=== PATIENT | male | born 1955 | race Caucasian/White ===

== ENCOUNTER 2019-02-18 07:54 | Inpatient (IN) | payer OTHER, MEDICAID ==
[2019-02-18] VITALS (10 sets, daily range): BP systolic 120–161; BP diastolic 48–88
[~2019-02-18] VITALS: Ht 172.7 cm; Wt 57.7 kg
[~2019-02-18 07:54] MED LIST: AMLO1CAP PO; CIME800T PO; CLON1TAB12 PO; HYDR-3512 PO
[2019-02-18 09:13] LABS: HEMATOCRIT. 33.2 % (42.0-52.0); HEMOGLOBIN. 11.4 g/dL (14.0-18.0); MEAN CORPUSCULAR HEMOGLOBIN 29.6 pg (28.0-32.0); MEAN CORPUSCULAR VOLUME 86.3 fL (80.0-94.0); MEAN PLATELET VOLUME 8.7 fl (7.4-10.4); RED BLOOD CELL COUNT 3.85 mill/uL (4.7-6.1); RED CELL DISTRIBUTION WIDTH 20.5 % (11.6-14.6)
[2019-02-18 09:20] LABS: CHLORIDE 75 mEq/L (98-107)
[2019-02-18 09:24] LABS: ETHANOL BLOOD < 10 mg/dL
[2019-02-18 09:46] LABS: CLARITY URINE CLOUDY (CLEAR); COLOR URINE YELLOW (YELLOW); KETONES URINE NEGATIVE (NEGATIVE); LEUKOCYTE ESTERASE URINE 1+ (NEGATIVE); NITRITE URINE NEGATIVE (NEGATIVE); OCCULT BLOOD URINE NEGATIVE (NEGATIVE); PROTEIN URINE NEGATIVE (NEGATIVE); SPECIFIC GRAVITY URINE 1.007 (1.005-1.030)
[2019-02-18 09:51] LABS: PLATELET ESTIMATE NORMAL
[2019-02-18 09:52] LABS: PLATELET 103 x1000/uL (130-400)
[2019-02-18] MEDS ORDERED: POTASSIUM CHLORIDE INJ 40 MEQ in DEXT 5% WATER 500 ML IV ONE (10:00)
[2019-02-18 10:17] LABS: METHADONE URINE SCREEN NEGATIVE (NEGATIVE); OPIATES URINE SCREEN PRESUMTIVE POSITIVE (NEGATIVE); PHENCYCLIDINE URINE SCREEN NEGATIVE (NEGATIVE)
[2019-02-18 10:18] LABS: *AMPHETAMINES SCREEN URINE NEGATIVE (NEGATIVE); *BARBITURATES SCREEN URINE NEGATIVE (NEGATIVE); CANNABINOID URINE SCREEN NEGATIVE (NEGATIVE)
[2019-02-18 10:20] LABS: *COCAINE SCREEN URINE NEGATIVE (NEGATIVE)
[2019-02-18 10:22] LABS: *BENZODIAZEPINES SCREEN URINE NEGATIVE (NEGATIVE)
[2019-02-18] MEDS ORDERED: CLONIDINE 0.1MG TABLET PO PRN (11:15)
[2019-02-18] MEDS ORDERED: DOCUSATE SODIUM 100MG CAPSULE PO PRN (11:15)
[2019-02-18] MEDS ORDERED: IPRATROPIUM/ALBUTEROL 0.5-3(2.5)MG/3ML NEB INH PRN (11:15)
[2019-02-18] MEDS ORDERED: ACETAMINOPHEN 650MG SUPP PR PRN (11:15)
[2019-02-18] MEDS ORDERED: SODIUM CHLORIDE 0.9% 500 ML IV NR (11:15)
[2019-02-18] MEDS ORDERED: GUAIFENESIN 200MG/10ML SUGAR FREE UDC PO PRN (11:15)
[2019-02-18] MEDS ORDERED: DIPHENHYDRAMINE 50MG/ML VIAL IV PRN (11:15)
[2019-02-18] MEDS ORDERED: MAGNESIUM/ALUMINUM HYDROXIDE/SIMETHICONE 30ML UDC PO PRN (11:15)
[2019-02-18] MEDS ORDERED: LORAZEPAM 0.5MG TABLET PO PRN (11:15)
[2019-02-18] MEDS ORDERED: ONDANSETRON HCL 4MG/2ML INJ IV PRN (11:15)
[2019-02-18] MEDS ORDERED: VANCOMYCIN 1 G PREMIX 200 ML IV ONE (12:00)
[2019-02-18] MEDS ORDERED: SODIUM CHLORIDE 3% 500 ML IV NR (12:00)
[2019-02-18] MEDS ORDERED: PIPERACILLIN/TAZ 3.375G PREMIX 50 ML IV ONE (12:00)
[2019-02-18] MEDS ORDERED: SODIUM CHLORIDE 0.9% 1,000 ML IV ONE (12:00)
[2019-02-18 12:36] LABS: BG BASE EXCESS 0.9 mmol/L (-2.0-2.0); BG CARBOXYHEMOGLOBIN 0.6 % (0.5-1.5); BG DEOXYHEMOGLOBIN 1.6 % (0.0-5.0); BG FRACTION INSPIRED OXYGEN 21; BG HCO3 ACT 23.4 mmol/L (22.0-26.0); BG METHEMOGLOBIN 0.3 % (0.0-1.5); BG OXYGEN SATURATION 98.4 % (92.0-98.5); BG OXYHEMOGLOBIN 97.5 % (94.0-97.0); BG PCO2 29.8 mmHg (35.0-45.0); BG PH 7.512 (7.350-7.450); BG PO2 107.4 mmHg (75.0-100.0); BG SAMPLE SITE RIGHT BRACHIAL; BG TOTAL HEMOGLOBIN 10.3 g/dL (12.0-18.0); BG VENT MODE ROOM AIR
[2019-02-18] MEDS ORDERED: LACTULOSE 20G/30ML UDC PO SCH (13:45)
[2019-02-18] MEDS ORDERED: MAGNESIUM 2 G PREMIX 50 ML IV ONE (13:45)
[2019-02-18] MEDS ORDERED: LIDOCAINE HCL 1% 20ML VIAL (Pyxis) INJ ONE (13:52)
[2019-02-18] MEDS ORDERED: THIAMINE HCL 100 MG in SODIUM CHLORIDE 0.9% 49 ML IV ONE (14:30)
[2019-02-18 14:38] LABS: HEPATITIS B SURFACE ANTIGEN NEGATIVE
[2019-02-18] MEDS ORDERED: LORAZEPAM 2MG/ML CPJ IV PRN (14:45)
[2019-02-18 15:08] LABS: HEPATITIS A AB IGM NEGATIVE (NEGATIVE)
[2019-02-18] MEDS ORDERED: FUROSEMIDE 40MG/4ML VIAL IVP ONE (16:00)
[2019-02-18] MEDS: FOLIC ACID 1MG TABLET PO SCH (17:20)
[2019-02-18] MEDS: MULTIVITAMINS,THER W-MINERALS TABLET PO SCH (17:20)
[2019-02-18 17:34] LABS: CHLORIDE 81 mEq/L (98-107)
[2019-02-18 17:42] LABS: CREATINE KINASE 78 IU/L (39-308)
[2019-02-18 17:44] LABS: CREATINE KINASE MB FRACTION 3.5 ng/mL (0.5-3.6)
[2019-02-18] MEDS ORDERED: POTASSIUM CHLORIDE INJ 40 MEQ in DEXT 5% WATER 250 ML IV SCH ×2 (18:00→22:00)
[2019-02-18] MEDS: HYDROCODONE/ACETAMINOPHEN 5/325MG TABLET PO PRN (18:31)
[2019-02-18 18:58] LABS: PHOSPHORUS 0.6 mg/dL (2.5-4.9)
[2019-02-18] MEDS: PIPERACILLIN/TAZOBACTAM 3.375 G in DEXT 5% WATER 100 ML IV SCH (20:29)
[2019-02-18] MEDS ORDERED: ENOXAPARIN 40MG/0.4ML SYR SUBCUT SCH (21:00)
[2019-02-18] MEDS ORDERED: MAGNESIUM 2 G PREMIX 50 ML IV NR (21:30)
[2019-02-18] MEDS: FAMOTIDINE 20MG/2ML VIAL IV SCH (21:45)
[2019-02-18] MEDS ORDERED: SODIUM PHOS,M-BASIC-D-BASIC 15 MM in DEXT 5% WATER 245 ML IV NR (22:00)
[2019-02-18] MEDS: MORPHINE SULFATE 4 MG/ML CPJ (NOT FOR IM USE) IV PRN (22:17)
[2019-02-19] VITALS (39 sets, daily range): BP systolic 83–162; BP diastolic 32–91
[2019-02-19] MEDS ORDERED: MAGNESIUM 1 G PREMIX 100 ML IV NR
[2019-02-19] MEDS ORDERED: KCL 20MEQ/100ML PREMIX 100 ML IV SCH (02:00)
[2019-02-19] MEDS: PIPERACILLIN/TAZOBACTAM 3.375 G in DEXT 5% WATER 100 ML IV SCH ×4 (03:56→21:16)
[2019-02-19 06:11] LABS: HEMATOCRIT. 25.6 % (42.0-52.0); HEMOGLOBIN. 9.1 g/dL (14.0-18.0); MEAN CORPUSCULAR HEMOGLOBIN 30.9 pg (28.0-32.0); MEAN CORPUSCULAR VOLUME 86.9 fL (80.0-94.0); MEAN PLATELET VOLUME 8.3 fl (7.4-10.4); PLATELET 152 x1000/uL (130-400); RED BLOOD CELL COUNT 2.94 mill/uL (4.7-6.1); RED CELL DISTRIBUTION WIDTH 20.2 % (11.6-14.6)
[2019-02-19 06:19] LABS: CHLORIDE 93 mEq/L (98-107)
[2019-02-19 06:27] LABS: LDL CHOLESTEROL 29 mg/dL (5-100)
[2019-02-19 06:28] LABS: CREATINE KINASE 55 IU/L (39-308); CREATINE KINASE MB FRACTION 1.8 ng/mL (0.5-3.6); HDL CHOLESTEROL 46 mg/dL (40-59)
[2019-02-19 06:29] LABS: T4 FREE 1.56 ng/dL (0.76-1.46)
[2019-02-19] MEDS ORDERED: POTASSIUM CHLORIDE 20MEQ TABLET SR PO NR ×2 (07:30→09:00)
[2019-02-19 08:01] LABS: PHOSPHORUS 0.9 mg/dL (2.5-4.9)
[2019-02-19] MEDS: FAMOTIDINE 20MG/2ML VIAL IV SCH ×2 (08:11→21:16)
[2019-02-19] MEDS: MULTIVITAMINS,THER W-MINERALS TABLET PO SCH (08:12)
[2019-02-19] MEDS: FOLIC ACID 1MG TABLET PO SCH (08:12)
[2019-02-19] MEDS ORDERED: POTASSIUM PHOS,M-BASIC-D-BASIC 20 MMOL in DEXT 5% WATER 243.3333 ML IV NR (10:00)
[2019-02-19 16:27] LABS: CHLORIDE 95 mEq/L (98-107)
[2019-02-19 16:32] LABS: PHOSPHORUS 1.2 mg/dL (2.5-4.9)
[2019-02-19 17:28] LABS: PLATELET ESTIMATE NORMAL
[2019-02-19] MEDS: POTASSIUM PHOS,M-BASIC-D-BASIC 30 MMOL in DEXT 5% WATER 250 ML IV SCH ×2 (19:12→22:48)
[2019-02-19 20:40] LABS: INR 1.2; PROTHROMBIN TIME 11.9 sec (9.6-11.0)
[2019-02-19] MEDS: MORPHINE SULFATE 4 MG/ML CPJ (NOT FOR IM USE) IV PRN (23:04)
[2019-02-20] VITALS (26 sets, daily range): BP systolic 98–152; BP diastolic 51–91
[2019-02-20] MEDS: PIPERACILLIN/TAZOBACTAM 3.375 G in DEXT 5% WATER 100 ML IV SCH ×4 (04:13→21:10)
[2019-02-20 06:57] LABS: HEMOGLOBIN 8.2 g/dL (14.0-18.0); MEAN CORPUSCULAR VOLUME 87.7 fL (80.0-94.0); PLATELET 135 x1000/uL (130-400); RED BLOOD CELL COUNT 2.74 mill/uL (4.7-6.1); RED CELL DISTRIBUTION WIDTH 20.4 % (11.6-14.6)
[2019-02-20 07:19] LABS: CHLORIDE 95 mEq/L (98-107)
[2019-02-20 07:30] LABS: PHOSPHORUS 3.5 mg/dL (2.5-4.9)
[2019-02-20] MEDS: THIAMINE HCL 100MG TABLET PO SCH ×2 (09:55→16:35)
[2019-02-20] MEDS: POTASSIUM CHLORIDE 20MEQ TABLET SR PO SCH ×2 (09:55→12:17)
[2019-02-20] MEDS: FAMOTIDINE 20MG/2ML VIAL IV SCH ×2 (09:55→21:10)
[2019-02-20] MEDS: FOLIC ACID 1MG TABLET PO SCH (09:55)
[2019-02-20] MEDS: MULTIVITAMINS,THER W-MINERALS TABLET PO SCH (09:55)
[2019-02-20] MEDS: MORPHINE SULFATE 4 MG/ML CPJ (NOT FOR IM USE) IV PRN (09:56)
[2019-02-20] MEDS ORDERED: POTASSIUM CHLORIDE 20MEQ TABLET SR PO SCH (10:00)
[2019-02-21] VITALS (23 sets, daily range): BP systolic 109–163; BP diastolic 58–99
[2019-02-21] MEDS: HYDROCODONE/ACETAMINOPHEN 5/325MG TABLET PO PRN ×3 (02:03→15:20)
[2019-02-21] MEDS: PIPERACILLIN/TAZOBACTAM 3.375 G in DEXT 5% WATER 100 ML IV SCH ×4 (04:44→21:42)
[2019-02-21 07:26] LABS: HEMATOCRIT 24.4 % (42.0-52.0); HEMOGLOBIN 8.1 g/dL (14.0-18.0); MEAN CORPUSCULAR HEMOGLOBIN 29.5 pg (28.0-32.0); MEAN CORPUSCULAR VOLUME 88.5 fL (80.0-94.0); PLATELET 148 x1000/uL (130-400); RED BLOOD CELL COUNT 2.76 mill/uL (4.7-6.1); RED CELL DISTRIBUTION WIDTH 20.8 % (11.6-14.6)
[2019-02-21 07:40] LABS: CHLORIDE 99 mEq/L (98-107)
[2019-02-21] MEDS: THIAMINE HCL 100MG TABLET PO SCH ×2 (08:15→16:57)
[2019-02-21] MEDS: MULTIVITAMINS,THER W-MINERALS TABLET PO SCH (08:15)
[2019-02-21] MEDS: FOLIC ACID 1MG TABLET PO SCH (08:15)
[2019-02-21] MEDS: FAMOTIDINE 20MG/2ML VIAL IV SCH ×2 (08:15→20:08)
[2019-02-21] MEDS: MORPHINE SULFATE 4 MG/ML CPJ (NOT FOR IM USE) IV PRN ×2 (10:10→20:08)
[2019-02-21] MEDS ORDERED: POTASSIUM CHLORIDE 20MEQ TABLET SR PO NR (11:00)
[2019-02-21 13:24] LABS: HEMATOCRIT 23.9 % (42.0-52.0); HEMOGLOBIN 8.1 g/dL (14.0-18.0)
[2019-02-21] MEDS ORDERED: LORAZEPAM 2MG/ML CPJ IV PRN (14:45)
[2019-02-22] VITALS (23 sets, daily range): BP systolic 110–169; BP diastolic 44–115
[2019-02-22] MEDS: PIPERACILLIN/TAZOBACTAM 3.375 G in DEXT 5% WATER 100 ML IV SCH ×4 (04:09→22:00)
[2019-02-22] MEDS: HYDROCODONE/ACETAMINOPHEN 5/325MG TABLET PO PRN (04:09)
[2019-02-22 07:02] LABS: HEMATOCRIT 24.9 % (42.0-52.0); HEMOGLOBIN 8.4 g/dL (14.0-18.0); PLATELET 170 x1000/uL (130-400); RED CELL DISTRIBUTION WIDTH 20.6 % (11.6-14.6)
[2019-02-22 07:43] LABS: CHLORIDE 100 mEq/L (98-107)
[2019-02-22] MEDS: THIAMINE HCL 100MG TABLET PO SCH ×2 (08:38→16:43)
[2019-02-22] MEDS: FAMOTIDINE 20MG/2ML VIAL IV SCH ×3 (08:38→21:40)
[2019-02-22] MEDS: MULTIVITAMINS,THER W-MINERALS TABLET PO SCH (08:38)
[2019-02-22] MEDS: FOLIC ACID 1MG TABLET PO SCH (08:38)
[2019-02-22] MEDS: MORPHINE SULFATE 4 MG/ML CPJ (NOT FOR IM USE) IV PRN ×2 (08:39→13:28)
[2019-02-22] MEDS ORDERED: POTASSIUM CHLORIDE INJ 40 MEQ in DEXT 5% WATER 230 ML IV NR (13:00)
[2019-02-22] MEDS ORDERED: POTASSIUM CHLORIDE 20MEQ TABLET SR PO NR (18:45)
[2019-02-23] VITALS (13 sets, daily range): BP systolic 86–131; BP diastolic 52–70
[2019-02-23] MEDS: MORPHINE SULFATE 4 MG/ML CPJ (NOT FOR IM USE) IV PRN ×3 (04:08→16:51)
[2019-02-23] MEDS: PIPERACILLIN/TAZOBACTAM 3.375 G in DEXT 5% WATER 100 ML IV SCH ×3 (04:09→16:01)
[2019-02-23 06:38] LABS: CHLORIDE 103 mEq/L (98-107)
[2019-02-23 06:46] LABS: HEMATOCRIT 25.1 % (42.0-52.0); HEMOGLOBIN 8.4 g/dL (14.0-18.0); MEAN CORPUSCULAR HEMOGLOBIN 29.9 pg (28.0-32.0); MEAN CORPUSCULAR VOLUME 88.9 fL (80.0-94.0); PLATELET 178 x1000/uL (130-400); RED BLOOD CELL COUNT 2.82 mill/uL (4.7-6.1); RED CELL DISTRIBUTION WIDTH 20.8 % (11.6-14.6)
[2019-02-23] MEDS: FAMOTIDINE 20MG/2ML VIAL IV SCH ×2 (09:03→20:30)
[2019-02-23] MEDS: THIAMINE HCL 100MG TABLET PO SCH (09:03)
[2019-02-23] MEDS: FOLIC ACID 1MG TABLET PO SCH (09:03)
[2019-02-23] MEDS: MULTIVITAMINS,THER W-MINERALS TABLET PO SCH (09:03)
[2019-02-23] MEDS: ACETAMINOPHEN 325MG TABLET PO PRN (20:30)
[2019-02-24 00:12] VITALS: BP 126/54
[2019-02-24 04:00] VITALS: BP 122/58
[2019-02-24 08:00] VITALS: BP_SYST 101; BP_SYST 137; BP_DIAS 71
[2019-02-24] MEDS: FOLIC ACID 1MG TABLET PO SCH (08:40)
[2019-02-24] MEDS: FAMOTIDINE 20MG/2ML VIAL IV SCH (08:40)
[2019-02-24] MEDS: MULTIVITAMINS,THER W-MINERALS TABLET PO SCH (08:40)
[2019-02-24] MEDS: ACETAMINOPHEN 325MG TABLET PO PRN (09:54)
[2019-02-24 12:00] VITALS: BP_SYST 115; BP_SYST 131; BP_DIAS 58; BP_DIAS 70
== END 2019-02-24 12:13 | DRG 563 ==
LOC: ER 07:54 → 5EST 10:57 → SUPCPDRO 11:12 → ENRESERV 15:26 → 7WST 02-23 07:30
PROVIDERS: ADMIT Internal Medicine; ATTEND Internal Medicine
PROC: 02HV33Z Insertion of Infusion Device into Superior Vena Cava, Percutaneous Approach (ICD-10-PCS; principal; 2019-02-18)
PROC: B548ZZA Ultrasonography of Superior Vena Cava, Guidance (ICD-10-PCS; 2019-02-18)
PROC: 2W3DX1Z Immobilization of Left Lower Arm using Splint (ICD-10-PCS; 2019-02-18)
DX: S52.602A Unspecified fracture of lower end of left ulna, initial encounter for closed fracture (principal); E87.1 Hypo-osmolality and hyponatremia; E72.20 Disorder of urea cycle metabolism, unspecified; M48.56XA Collapsed vertebra, not elsewhere classified, lumbar region, initial encounter for fracture; E87.3 Alkalosis; E87.6 Hypokalemia; D64.9 Anemia, unspecified; D69.6 Thrombocytopenia, unspecified; D72.825 Bandemia; E83.39 Other disorders of phosphorus metabolism; E83.42 Hypomagnesemia; S00.83XA Contusion of other part of head, initial encounter; I10 Essential (primary) hypertension; F10.10 Alcohol abuse, uncomplicated; G40.909 Epilepsy, unspecified, not intractable, without status epilepticus; M47.816 Spondylosis without myelopathy or radiculopathy, lumbar region; E80.6 Other disorders of bilirubin metabolism; M43.16 Spondylolisthesis, lumbar region; I34.8 Other nonrheumatic mitral valve disorders; B19.20 Unspecified viral hepatitis C without hepatic coma; W01.0XXA Fall on same level from slipping, tripping and stumbling without subsequent striking against object, initial encounter; Y93.89 Activity, other specified; Y92.89 Other specified places as the place of occurrence of the external cause; Z91.19 Patient's noncompliance with other medical treatment and regimen; Z79.899 Other long term (current) drug therapy; Y99.8 Other external cause status
CPT/HCPCS: 36415; 36600; 70486; 71045; 72131; 72170; 73110; 73130; 73552; 76700; 76937; 80048; 80061; 80305; 80320; 81003; 82140; 82375; 82550; 82553; 82805; 83605; 83735; 83880; 84100; 84132; 84145; 84439; 84443; 84484; 85014; 85018; 85027; 86705; 86709; 86803; 87340; 92610; 93005; 93306; 93923; 93970; 96374; 97163; 97167; 99285; C1725; J1650; J2060; J2270; J2543; J3370; J3411; J3475; J3480; J3490; J7030; J7060; G0480

== ENCOUNTER 2020-12-18 18:29 | Emergency (ER) | payer OTHER, MEDICAID ==
[~2020-12-18] VITALS: Ht 172.7 cm; Wt 71.0 kg
[~2020-12-18 18:29] MED LIST changes: +CHOL500051 PO; +DOCU100T PO; +FAMO-135 PO; +FERR325T6 PO; +GABA-529 PO; +HYDR-4346 PO; +MAGN400T26 PO; +MSCON15 PO; +SENN-155 PO; +[UNRECOGNIZED DRUG - OTHER] PO
[2020-12-18 21:50] LABS: BASOPHILS % 0.4 % (0.0-2.0); EOSINOPHILS % 4.1 % (0.0-5.0); HEMATOCRIT. 36.1 % (42.0-52.0); HEMOGLOBIN. 11.9 g/dL (14.0-18.0); LYMPHOCYTES % 15.4 % (20.0-50.0); MEAN CORPUSCULAR HEMOGLOBIN 27.1 pg (28.0-32.0); MEAN CORPUSCULAR VOLUME 81.9 fL (80.0-94.0); MEAN PLATELET VOLUME 8.1 fl (7.4-10.4); MONOCYTES % 7.7 % (2.0-8.0); NEUTROPHILS % 72.4 % (40.0-76.0); PLATELET 169 x1000/uL (130-400); RED CELL DISTRIBUTION WIDTH 17.6 % (11.6-14.6)
[2020-12-18 21:56] LABS: CHLORIDE 104 mEq/L (98-107)
[2020-12-18 21:59] LABS: CLARITY URINE CLOUDY (CLEAR); COLOR URINE YELLOW (YELLOW); KETONES URINE NEGATIVE (NEGATIVE); LEUKOCYTE ESTERASE URINE 3+ (NEGATIVE); NITRITE URINE NEGATIVE (NEGATIVE); OCCULT BLOOD URINE 2+ (NEGATIVE); PROTEIN URINE TRACE (NEGATIVE); SPECIFIC GRAVITY URINE 1.007 (1.005-1.030); UROBILINOGEN URINE 0.2 E.U./dL (0.2-1.0)
[2020-12-18] MEDS ORDERED: SULFAMETHOXAZOLE/TRIMETHOPRIM 800/160MG TABLET PO SCH (23:00)
[2020-12-18] MEDS ORDERED: CEPH500C2 MT (23:01)
[2020-12-18 23:15] VITALS: BP 171/82
[2020-12-18] MEDS ORDERED: HYDROCODONE/ACETAMINOPHEN 10/325MG TABLET PO ONE (23:15)
[2020-12-18] MEDS ORDERED: CEPHALEXIN 250MG CAPSULE PO ONE (23:15)
== END 2020-12-19 00:33 | disposition home or self-care (01) ==
LOC: ER 18:29
DX: N39.0 Urinary tract infection, site not specified (principal); R31.9 Hematuria, unspecified; I10 Essential (primary) hypertension; J44.9 Chronic obstructive pulmonary disease, unspecified; M19.90 Unspecified osteoarthritis, unspecified site; K74.60 Unspecified cirrhosis of liver; Z85.528 Personal history of other malignant neoplasm of kidney; F10.21 Alcohol dependence, in remission
CPT/HCPCS: 36415; 80053; 81003; 85025; 99283

== ENCOUNTER → 2021-02-24 | Outpatient (CLI) | payer MEDICARE, MEDICAID ==
[~2021-02-24] MED LIST changes: +CEPH500C2 MT
== END | disposition home or self-care (01) ==
LOC: CT 13:04
PROVIDERS: ATTEND Internal Medicine
DX: N28.1 Cyst of kidney, acquired (principal); N28.89 Other specified disorders of kidney and ureter; K74.60 Unspecified cirrhosis of liver; K76.6 Portal hypertension; M47.816 Spondylosis without myelopathy or radiculopathy, lumbar region; K42.9 Umbilical hernia without obstruction or gangrene; I70.0 Atherosclerosis of aorta; K44.9 Diaphragmatic hernia without obstruction or gangrene; N32.89 Other specified disorders of bladder; N20.0 Calculus of kidney; M95.5 Acquired deformity of pelvis; M84.454A Pathological fracture, pelvis, initial encounter for fracture
CPT/HCPCS: 74176